=== PATIENT | male | born 1960 ===

== ENCOUNTER 2017-02-01 20:01 | Emergency (ER) | payer SELFPAY ==
[2017-02-01 21:12] LABS: CHLORIDE 102 mmol/L (98-107)
[2017-02-01 21:13] LABS: POTASSIUM 3.5 mmol/L (3.6-5.2); SODIUM 139 mmol/L (132-148)
[2017-02-01 21:15] LABS: BILIRUBIN,TOTAL 0.4 mg/dL (0.2-1.3); CARBON DIOXIDE 25 mmol/L (22-30); GFR AFRICAN-AMERICAN > 60
[2017-02-01 21:16] LABS: ALB/GLOB RATIO 1.2 (1.0-2.1); ALKALINE PHOSPHATASE 82 U/L (38-126); ALT/SGPT 31 U/L (21-72); AST/SGOT 19 U/L (17-59); BLOOD UREA NITROGEN 16 mg/dL (9-20); CALCIUM 8.5 mg/dl (8.6-10.4); GLUCOSE,RANDOM 114 mg/dL (75-110); HEMATOCRIT 38.9 % (35.0-51.0); MEAN CELL VOLUME 86.3 fL (80.0-94.0); MEAN CORPUSCULAR HEMOGLOBIN 29.5 pg (27.0-31.0); MEAN CORPUSCULAR HGB CONC 34.2 g/dL (33.0-37.0); MEAN PLATELET VOLUME 8.9 fL (7.2-11.7); RED CELL DISTRIBUTION WIDTH 14.7 % (11.5-14.5); TOTAL PROTEIN 6.7 g/dL (6.3-8.3); WHITE BLOOD COUNT 7.5 K/uL (4.8-10.8)
--- NOTE | 2017-02-01 21:38 | C.PDOC ---
History Of Present Illness 56 y/o male, whose PMHx includes Coronary Artery Disease, presents to the ED for evaluation of bilateral leg pain (right>left) which began around 2 weeks ago. Patient notes he has been experiencing cramping for the past 3 nights. Last night, patient felt a "jin horse" in his right leg and began experiencing pain with walking today. 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 Patient admits to taking water pills and has been informed of having low Potassium levels in the past. He denies chest pain, shortness of breath, extremity numbness/weakness, recent trauma/injury. Time Seen by Provider: 02/01/17 20:37 Chief Complaint (Nursing): Lower Extremity Problem/Injury History Per: Patient History/Exam Limitations: no limitations Onset/Duration Of Symptoms: Other (around 2 weeks ) Current Symptoms Are (Timing): Still Present Additional History Per: Patient - Ankle/Foot Description Of Injury: denies: Fell, Struck With Object, Struck Against Object, Twisted Past Medical History Reviewed: Historical Data, Nursing Documentation, Vital Signs Vital Signs: Last Vital Signs Temp 98.1 F 02/01/17 22:30 Pulse 92 H 02/01/17 22:30 Resp 18 02/01/17 22:30 BP 169/90 H 02/01/17 22:30 Pulse Ox 97 02/02/17 01:31 - Medical History PMH: HTN, Hypercholesterolemia Surgical History: CABG (5 yrs. ago) Family History: States: Unknown Family Hx - Social History Hx Alcohol Use: No Hx Substance Use: No - Immunization History Hx Influenza Vaccination: Yes Hx Pneumococcal Vaccination: No Review Of Systems Cardiovascular: Negative for: Chest Pain Respiratory: Negative for: Shortness of Breath Musculoskeletal: Positive for: Leg Pain (bilateral, right>left ) Neurological: Negative for: Weakness, Numbness Physical Exam - Physical Exam Appears: Non-toxic, No Acute Distress Skin: Normal Color, Warm, Dry Head: Atraumatic, Normacephalic Eye(s): bilateral: Normal Inspection Oral Mucosa: Moist Neck: Supple Chest: Symmetrical, No Deformity, No Tenderness Cardiovascular: Rhythm Regular, No Murmur Respiratory: Normal Breath Sounds, No Rales, No Rhonchi, No Wheezing Extremity: Normal ROM, Tenderness (to right lateral anterior tibial region ), Pedal Edema (trace, bilaterally ), No Calf Tenderness, Capillary Refill (less than 2 seconds ), No Other (ecchymosis, erythema, or palpable cords ) Pulses: Left Dorsalis Pedis: Normal, Right Dorsalis Pedis: Normal Neurological/Psych: Oriented x3, Normal Speech, Normal Cognition Gait: Steady ED Course And Treatment - Laboratory Results Result Diagrams: 02/01/17 20:57 02/01/17 20:57 O2 Sat by Pulse Oximetry: 97 (on RA) Pulse Ox Interpretation: Normal Medical Decision Making Medical Decision Making: Impression: 56 y/o male with bilateral leg pain R>L Plan: * labs * Motrin PO * Ultram PO * reassess and disposition Progress: labs ordered; review of labs shows Potassium count is within normal limits. Patient received Motrin PO. Patient found minimal improvement in pain. Patient received Ultram PO. On reassessment, patient is resting comfortably, showing no signs of distress, and is stable for discharge. Patient is advised to follow up with his PMD within 1-2 days for further evaluation and/or return to the ED if symptoms worsen. Disposition Counseled Patient/Family Regarding: Diagnosis, Need For Followup, Rx Given - Disposition Referrals: Mylene Goff MD [Staff Provider] - Disposition: HOME/ ROUTINE Disposition Time: 21:36 Condition: STABLE Additional Instructions: Por favor tome jay medicamentos usuales y Naproxen para cualquier dolor en las piernas. Trate de hacer ejercicios de estiramiento para ayudar con los jeanmarie en las piernas. Dobson potasio hoy era normal 3.5. Trate de comer pltanos para ayudar con el potasio. Siga con dobson mdico Prescriptions: Naproxen [Naprosyn] 1 tab PO BID PRN #25 tab PRN Reason: Pain Instructions: Leg Cramps (ED) Forms: [facility] (Palauan) Print Language: DOMINICAN - POA Present On Arrival: None - Clinical Impression Clinical Impression: Leg cramps - PA / ELECTR[employer] ELECT[employer] TECHNICIAN / Resident Statement MD/DO has reviewed & agrees with the documentation as recorded. - Scribe Statement The provider has reviewed the documentation as recorded by the Scribe (Nurys Gutierrez) All medical record entries made by the Scribe were at my direction and personally dictated by me. I have reviewed the chart and agree that the record accurately reflects my personal performance of the history, physical exam, medical decision making, and the department course for this patient. I have also personally directed, reviewed, and agree with the discharge instructions and disposition.
[2017-02-01 22:35] VITALS: BP 169/90; PULSE 92; RESP 18; TEMP 98.1
[2017-02-02 01:21] VITALS: O2SAT 97
== END 2017-02-01 22:35 | disposition home or self-care (01) ==
LOC: C.ER 20:01
DX: R25.2 Cramp and spasm (principal)